=== PATIENT | female | born 1985 | race Caucasian/White ===

== ENCOUNTER 2018-03-09 22:03 | Emergency (ER) | payer MEDICAID ==
[2018-03-09 22:28] VITALS: BP 123/75
--- NOTE | 2018-03-09 22:52 | EDM.PDOC ---
ED HPI GENERAL MEDICAL PROBLEM - General Chief Complaint: Flank Pain Stated Complaint: RIGHT LOWER BACK PAIN Time Seen by Provider: 03/09/18 22:35 Source of Information: Reports: Patient, Old Records, RN History Limitations: Reports: No Limitations - History of Present Illness INITIAL COMMENTS - FREE TEXT/NARRATIVE: 32 yo female presents with recent onset of R flank pain that waxes and wanes associated with nausea but no vomiting. No fever. She called her OB doctor on Saturday and cephalexin was prescribed without benefit. She came to the OB floor tonight and was assured this was not labor and had a UA that was normal. OB referred her to the ER for further eval/treatment. Is taking acetaminophen with partial relief. Onset: Gradual Onset Date: 03/07/18 Duration: Waxing/Waning Location: Reports: Back (R flank) Quality: Reports: Ache Severity: Moderate Improves with: Reports: Medication Worsens with: Reports: None Context: Reports: Other (Is with a pHx of kidney stones x 1) Associated Symptoms: Reports: Nausea/Vomiting (no vomiting), Other (voiding more frequently). 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 - Related Data Allergies Allergy/AdvReac Type Severity Reaction Status Date / Time prednisone Allergy Hives Verified 04/28/16 18:14 Sulfa (Sulfonamide Allergy Hives Verified 04/28/16 18:14 Antibiotics) Home Meds: Home Meds Cholecalciferol (Vitamin D3) [Cholecalciferol] 1 tab PO DAILY 04/28/16 [History] metFORMIN [Glucophage XR] 1,000 mg PO BID 04/28/16 [History] Cephalexin [Keflex] 500 mg PO TID 03/09/18 [History] [id number]/Iron Fumarate/FA/DSS [ 19 Tablet] 1 each PO DAILY 03/09/18 [ History] Past Medical History Genitourinary History: Reports: Renal Calculus, UTI, 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 Denies: Abdominal Pain, Constipation, Diarrhea, Vomiting : Reports: Flank Pain (right), Frequency. Denies: Dysuria, Hematuria, Incontinence Musculoskeletal: Reports: No Symptoms Skin: Reports: No Symptoms Neurological: Reports: No Symptoms ED EXAM, RENAL/ - Physical Exam Exam: See Below Exam Limited By: No Limitations General Appearance: Alert, WD/WN, No Apparent Distress Eye Exam: Bilateral Eye: Normal Inspection Ears: Normal External Exam, Normal Canal, Hearing Grossly Normal Nose: Normal Inspection, Normal Mucosa, No Blood Throat/Mouth: Normal Inspection Head: Atraumatic, Normocephalic Neck: Normal Inspection Respiratory/Chest: No Respiratory Distress, Lungs Clear, Normal Breath Sounds, No Accessory Muscle Use Cardiovascular: Regular Rate, Rhythm, No Edema GI/Abdominal: Soft, Non-Tender, Other (gravid) Back Exam: Normal Inspection. No: CVA Tenderness (R), CVA Tenderness (L) Extremities: Normal Inspection, Normal Range of Motion, Non-Tender, No Pedal Edema Neurological: Alert, Oriented, CN II-XII Intact, Normal Cognition, No Motor/ Sensory Deficits Psychiatric: Normal Affect, Normal Mood Skin Exam: Warm, Dry, Intact, Normal Color, No Rash Course - Vital Signs Last Recorded V/S: Last Vital Signs Temp 37.3 C 03/09/18 22:24 Pulse 89 03/09/18 22:24 Resp 18 03/09/18 22:24 BP 123/75 03/09/18 22:24 Pulse Ox 99 03/09/18 22:24 - Orders/Labs/Meds Orders: Active Orders 24 hr Category Date Time Status Renal Comp [US] Stat Exams 03/09/18 22:31 Taken - Radiology Interpretation Free Text/Narrative:: Renal ultrasound-suspicious for R ureteral obstruction Departure - Departure Time of Disposition: 00:20 Disposition: Home, Self-Care 01 Condition: Fair Clinical Impression: Right flank pain Clinical Impression: (Ruled Out): Flank pain - Discharge Information Referrals: Melvi Alberto MD [Primary Care Provider] - Forms: ED Department Discharge - My Orders Last 24 Hours: My Active Orders 03/09/18 22:31 Renal Comp [US] Stat - Assessment/Plan Last 24 Hours: My Active Orders 03/09/18 22:31 Renal Comp [US] Stat
== END 2018-03-10 00:34 | disposition home or self-care (01) ==
LOC: JP.ED 22:03
DX: R10.9 Unspecified abdominal pain (principal); Z87.442 Personal history of urinary calculi; Z88.8 Allergy status to other drugs, medicaments and biological substances; Z88.2 Allergy status to sulfonamides; Z79.84 Long term (current) use of oral hypoglycemic drugs; Z79.899 Other long term (current) drug therapy
CPT/HCPCS: 76770; 81001; 99211; 99284

== ENCOUNTER → 2019-02-04 | Outpatient (CLI) | payer MEDICAID ==
--- NOTE | 2019-02-04 13:58 | US ---
Breast Limited Rt CLINICAL HISTORY: Right breast mastitis, nursing FINDINGS: Real-time images were obtained through the upper outer quadrant of the right breast were patient had episode of the pain and swelling. Patient is currently asymptomatic. No mass is identified. There is mildly prominent duct in the subareolar region likely related to . IMPRESSION: No mass, cyst or architectural distortion Recommendations: Clinical follow-up, no specific imaging recommended BI-RADS 2: Benign findings.
== END ==
LOC: JP.US 12:24
PROVIDERS: ATTEND Family Medicine
DX: N61.0 Mastitis without abscess (principal)
CPT/HCPCS: 76642-26-RT; 76642-RT